=== PATIENT | female | born 1940 | race Caucasian/White ===

== ENCOUNTER 2018-07-08 00:43 | Inpatient (IN) | payer OTHER ==
[2018-07-08] VITALS (18 sets, daily range): BP systolic 111–132; BP diastolic 36–85; PULSE 50–69; RESP 14–26; Ht 152.4 cm; Wt 68.0 kg
[~2018-07-08] VITALS: Ht 152.4 cm; Wt 68.0 kg
[2018-07-08] MEDS ORDERED: SOD CHLORIDE 0.9% 500 ML IV ONE (03:00)
--- NOTE | 2018-07-08 03:58 | ERD ---
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 She was given aspirin and nitro on route. She denies chest pain now. When she did have the chest pain, question substernal chest pain with associated shortness of breath. Mild associated diaphoresis. Denies fevers chills nausea vomiting. Patient does have history of previous coronary artery disease with iliac stenting done 8 years ago. Denies any other current issues at this point ROS All systems reviewed and are negative except as per history of present illness. Allergies Allergies: Coded Allergies: No Known Allergy (Unverified , 07/08/18) Physical Exam Vitals Vital Signs Date Temp Pulse Resp B/P (MAP) Pulse Ox O2 O2 Flow FiO2 Time Delivery Rate 07/08/18 97.9 66 17 101/53 96 Room Air 03:30 (69) 07/08/18 98.9 77 19 102/67 100 Room Air 00:56 (79) 07/08/18 98.3 69 16 117/65 100 00:56 (82) Physical Exam Const: No acute distress Head: Atraumatic Eyes: Normal Conjunctiva ENT: Normal External Ears, Nose and Mouth. Neck: Full range of motion. No meningismus. Resp: Clear to auscultation bilaterally Cardio: Regular rate and rhythm, no murmurs Abd: Soft, non tender, non distended. Normal bowel sounds Skin: No petechiae or rashes Back: No midline or flank tenderness Ext: No cyanosis, or edema Neur: Awake and alert Psych: Normal Mood and Affect Result Diagram: 07/08/1810707/08/18 0108 Results 24 hrs Laboratory Tests Test 07/08/18 01:08 White Blood Count 6.8 10^3/ul Red Blood Count 4.26 10^6/ul Hemoglobin 12.4 g/dl Hematocrit 38.2 % Mean Corpuscular Volume 89.7 fl Mean Corpuscular Hemoglobin 29.1 pg Mean Corpuscular Hemoglobin Concent 32.5 g/dl Red Cell Distribution Width 13.2 % Platelet Count 241 10^3/UL Mean Platelet Volume 9.6 fl Immature Granulocytes % 0.400 % Neutrophils % 73.2 % Lymphocytes % 20.7 % Monocytes % 5.4 % Eosinophils % 0.0 % Basophils % 0.3 % Nucleated Red Blood Cells % 0.0 /100WBC Immature Granulocytes # 0.030 10^3/ul Neutrophils # 5.0 10^3/ul Lymphocytes # 1.4 10^3/ul Monocytes # 0.4 10^3/ul Eosinophils # 0.0 10^3/ul Basophils # 0.0 10^3/ul Nucleated Red Blood Cells # 0.0 10^3/ul Sodium Level 143 mmol/L Potassium Level 4.4 mmol/L Chloride Level 108 mmol/L Carbon Dioxide Level 25 mmol/L Anion Gap 10 Blood Urea Nitrogen 23 mg/dl Creatinine 0.71 mg/dl Est Glomerular Filtrat Rate mL/min mL/min Glucose Level 134 mg/dl Calcium Level 10.0 mg/dl Total Bilirubin 0.2 mg/dl Direct Bilirubin 0.00 mg/dl Indirect Bilirubin 0.2 mg/dl Aspartate Amino Transf (AST/SGOT) 51 IU/L Alanine Aminotransferase (ALT/SGPT) 11 IU/L Alkaline Phosphatase 133 IU/L Troponin I 3.890 ng/ml B-Type Natriuretic Peptide 392 PG/ML Total Protein 7.9 g/dl Albumin 4.0 g/dl Globulin 3.90 g/dl Albumin/Globulin Ratio 1.02 Lipase 67 U/L Current Medications Medications Dose Sig/Martín Start Time Status Last (Trade) Ordered Route PRN Stop Time Admin Dose Reason Admin Sodium 500 ml @ Q1H ONCE 07/08/18 07/08/18 Chloride 500 mls/hr IV 03:00 03:11 07/08/18 03:59 Procedures/MDM Emergency department course: Patient seen and monitored. Placed in by family evaluation. 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 I do stat cardiac workup. EMS EKG was reviewed. Diagnostic data: EKG: From the field EMS Rate/Rhythm: [Normal Sinus Rhythm] QRS, ST, T-waves: [No changes consistent w/ acute ischemia] Impression: [No evidence of ischemia or arrhythmia] EKG: Rate/Rhythm: [Normal Sinus Rhythm] QRS, ST, T-waves: [No changes consistent w/ acute ischemia] Impression: [No evidence of ischemia or arrhythmia] Chest X-ray 1V Interpreted by me: Soft Tissue: No acute abnormalities Bones: No acute abnormalities Mediastinum/Cardiac Silhouette/Lungs: [No acute abnormalities] Medical decision making: This is a 78-year female as well as to be a non-ST segment elevated [place] cardial infarction. Dr. Montenegro is Of the posterior service. Patient has remained clinically stable throughout her stay here in the emergency department. Patient will be admitted to telemetry setting Departure Diagnosis: Primary Impression: Chest pain Chest pain type: unspecified Qualified Codes: R07.9 - Chest pain, unspecified Additional Impression: Non-STEMI (non-ST elevated myocardial infarction) Condition: Serious GIOVANNY MARY Jul 08, 2018 03:58
[2018-07-08] MEDS ORDERED: ASPIRIN 81 MG TAB PO SCH (09:30)
[2018-07-08] MEDS ORDERED: ONDANSETRON 4 MG INJ IV PRN (09:30)
[2018-07-08] MEDS ORDERED: NACL 0.9% 3 ML SYG IV SCH (09:30)
[2018-07-08] MEDS ORDERED: morphine 2 MG INJ IV PRN (09:30)
[2018-07-08] MEDS ORDERED: ACETAMINOPHEN 325 MG TAB PO PRN (09:30)
[2018-07-08] MEDS ORDERED: ASPIRIN 81 MG TAB ONE (09:35)
[2018-07-08] MEDS: FAMOTIDINE 20 MG TAB PO SCH ×2 (09:45→20:21)
--- NOTE | 2018-07-08 09:55 | CONS ---
Assessment/Plan Assessment/Plan Hospital Course (Demo Recall) Non-ST elevation myocardial infarction History of CVA History of myocardial infarction -Patient with symptoms of chest discomfort not feeling well since yesterday afternoon. Troponins have been trending up. ECG with inferior Q waves. -I did discuss the findings and high concern for myocardial infarction to the patient and daughter at bedside. I discussed the benefits and the risks and re commended cardiac catheterization. The patient and family are undecided want to discuss it further. -In the interim, I did order full dose aspirin, statin therapy, ablation is not planning to proceed with coronary angiogram soon, would start anticoagulation. Would hold off on beta-henri at the current time given labile blood pressure -Check echocardiogram Consultation Date/Type/Reason Admit Date/Time Type of Consult Cardiology Reason for Consultation Chest pain and elevated troponin Date/Time of Note DATE: 07/08/18 TIME: 09:50 Hx of Present Illness This is a 78-year-old female with past medical history of myocardial infarction, CVA who presents with not feeling well yesterday. Patient is hard to give history and as per the family bedside, patient is very stoic and does not complain much. Yesterday, patient was found to be pale, diaphoretic with chest pain. Vitals were taken and heart rate was in the 40s and saturations were in the 80s because of this EMS was called. Patient felt better after aspirin and nitroglycerin. Currently patient complaining of 1-2 out of 10 of chest pain but is feeling much better. She denies any current shortness of breath, dizziness or lightheadedness. As per family, patient did have CVA and myocardial infarction number of years ago and this was treated medically. She is disabled and walks only with a walker since childhood. 12 point review of systems was performed with all pertinent positives and negatives mentioned above and all else is negative Past Medical History CVA Myocardial infarction Medications Current Medications IV Flush (NS 3 ml) 3 ml PER PROTOCOL IV ; Start 07/08/18 at 09:30 Ondansetron HCl (Zofran Inj) 4 mg Q6H PRN IV NAUSEA/VOMITING; Start 07/08/18 at 09:30 Aspirin (Aspirin) 81 mg DAILY PO Last administered on 07/08/18at 09:42; Admin Dose 81 MG; Start 07/08/18 at 09:30 Acetaminophen (Tylenol Tab) 650 mg Q6H PRN PO .PAIN 1-3 OR TEMP; Start 07/08/18 at 09:30 Morphine Sulfate (morphine) 2 mg Q4H PRN IV .PAIN 7-10; Start 07/08/18 at 09:30 Zolpidem Tartrate (Ambien) 5 mg QHS PRN PO .INSOMNIA; Start 07/08/18 at 21:00 Famotidine (Pepcid) 20 mg Q12 PO Last administered on 07/08/18at 09:45; Admin Dose 20 MG; Start 07/08/18 at 09:30 Allergies: Coded Allergies: No Known Allergy (Unverified , 07/08/18) Family History Significant Family History: no pertinent family hx Social History Alcohol Use: none Smoking Status: Unknown if ever smoked Exam/Review of Systems Vital Signs Vitals Vital Signs Date Temp Pulse Resp B/P (MAP) Pulse Ox O2 O2 Flow FiO2 Time Delivery Rate 07/08/18 67 21 117/55 97 Room Air 05:30 (75) 07/08/18 97.9 03:30 Exam Constitutional: alert, oriented (No apparent distress) Head: normocephalic Neck: supple Respiratory: other (Coarse breath sounds bilaterally, no wheezing) Cardiovascular: regular rate and rhythm (S1-S2 heard) Gastrointestinal: soft, non-tender, bowel sounds Extremities: edema ( ECG demonstrates sinus rhythm at 64 bpm, inferior Q waves, nonspecific ST abnormalities) Labs Result Diagram: 07/08/18 0108 07/08/18 0108 Results 24hrs Laboratory Tests Test 07/08/18 01:08 07/08/18 07:00 White Blood Count 6.8 Red Blood Count 4.26 Hemoglobin 12.4 Hematocrit 38.2 Mean Corpuscular Volume 89.7 Mean Corpuscular Hemoglobin 29.1 Mean Corpuscular Hemoglobin Concent 32.5 Red Cell Distribution Width 13.2 Platelet Count 241 Mean Platelet Volume 9.6 Immature Granulocytes % 0.400 Neutrophils % 73.2 Lymphocytes % 20.7 Monocytes % 5.4 Eosinophils % 0.0 Basophils % 0.3 Nucleated Red Blood Cells % 0.0 Immature Granulocytes # 0.030 Neutrophils # 5.0 Lymphocytes # 1.4 Monocytes # 0.4 Eosinophils # 0.0 Basophils # 0.0 Nucleated Red Blood Cells # 0.0 Sodium Level 143 Potassium Level 4.4 Chloride Level 108 Carbon Dioxide Level 25 Anion Gap 10 Blood Urea Nitrogen 23 H Creatinine 0.71 Est Glomerular Filtrat Rate mL/min Glucose Level 134 Calcium Level 10.0 Total Bilirubin 0.2 Direct Bilirubin 0.00 Indirect Bilirubin 0.2 Aspartate Amino Transf (AST/SGOT) 51 H Alanine Aminotransferase (ALT/SGPT) 11 L Alkaline Phosphatase 133 H Troponin I 3.890 *H 20.900 *H B-Type Natriuretic Peptide 392 Total Protein 7.9 Albumin 4.0 Globulin 3.90 H Albumin/Globulin Ratio 1.02 Lipase 67 Creatine Kinase 666 H Creatine Kinase Index 10.9 Creatinine Kinase MB (Mass) 72.90 H Medications Medications Current Medications IV Flush (NS 3 ml) 3 ml PER PROTOCOL IV ; Start 07/08/18 at 09:30 Ondansetron HCl (Zofran Inj) 4 mg Q6H PRN IV NAUSEA/VOMITING; Start 07/08/18 at 09:30 Aspirin (Aspirin) 81 mg DAILY PO Last administered on 07/08/18at 09:42; Admin Dose 81 MG; Start 07/08/18 at 09:30 Acetaminophen (Tylenol Tab) 650 mg Q6H PRN PO .PAIN 1-3 OR TEMP; Start 07/08/18 at 09:30 Morphine Sulfate (morphine) 2 mg Q4H PRN IV .PAIN 7-10; Start 07/08/18 at 09:30 Zolpidem Tartrate (Ambien) 5 mg QHS PRN PO .INSOMNIA; Start 07/08/18 at 21:00 Famotidine (Pepcid) 20 mg Q12 PO Last administered on 07/08/18at 09:45; Admin Dose 20 MG; Start 07/08/18 at 09:30 Ben Calderon DO Jul 08, 2018 09:55
[2018-07-08] MEDS ORDERED: IODIXANOL LOCM 100 ML BTL ONE (10:36)
[2018-07-08] MEDS ORDERED: LIDOCAINE 1% (MDV) 20 ML INJ ONE (10:36)
[2018-07-08] MEDS ORDERED: VERAPAMIL 5 MG INJ ONE (10:37)
[2018-07-08] MEDS ORDERED: HEPARIN 1000 UNITS/ML 10 ML INJ ONE (10:37)
[2018-07-08] MEDS ORDERED: NITROGLYCERIN (IC) 100 MCG/ML INJ ONE (10:37)
--- NOTE | 2018-07-08 10:53 | HP ---
DATE OF ADMISSION: 07/08/2018 CHIEF COMPLAINT: Chest pain. HISTORY OF PRESENT ILLNESS: A 78-year-old female with known history of coronary artery disease, old CVA and hypertension. She presented to emergency room with complaint of chest pain associated with d iaphoresis at home. The patient denies any shortness of breath. At baseline, she is disabled and appiah s used a walker since childhood. Initial evaluation revealed evidence of acute non-ST elevated myoca rdial infarction. Last troponin was 20.9. PAST MEDICAL HISTORY: 1. Coronary artery disease. 2. Old myocardial infarction. 3. Old cerebrovascular accident. 4. Hypertension. SOCIAL HISTORY: The patient lives at home. She denies tobacco or alcohol use. PHYSICAL EXAMINATION: GENERAL: Well-developed, well-nourished female who is in no apparent distress. VITAL SIGNS: Stable. She is afebrile. HEENT: Extraocular muscles are intact. Pupils are equal and reactive to light bilaterally. Sclerae are anicteric. Oropharynx is clear and moist. NECK: Supple, no JVD, no carotid bruits. LUNGS: Clear to auscultation bilaterally. CARDIAC: Regular rate and rhythm. No murmurs, rubs or gallops. ABDOMEN: Soft, nontender, nondistended, normoactive bowel sounds. EXTREMITIES: No clubbing, cyanosis, or edema. LABORATORY DATA: White blood cell count 6.8, hemoglobin 12.4, platelet count is 241,000. Basic meta bolic panel is within normal limits. Troponins are 3.9 and 20.9. Albumin is 4. ASSESSMENT: 1. A 78-year-old female with acute non-STEMI. 2. History of previous myocardial infarction. 3. History of old cerebrovascular accident. 4. Chronic debilitation. PLAN: 1. Admit to telemetry. 2. Resume home medications. 3. Serial troponins. 4. 2D echo. 5. Cardiology consultation was requested. Dictated By: MATHIEU MCDONALD/GOMEZ Conf#: [id number] DID#: [id number] CC: JONH FORTUNE DO;*EndCC*
--- NOTE | 2018-07-08 11:03 | RADRPT ---
Echocardiogram Report Patient Name: Krupa VICENTEtient ID: [id number] : 1940 (78y 2m)Study Date: 07/08/2018 9:50:11 AM Gender: FAccession #: [id number] Tech: YajairaOriana [facility] Location: [facility] Ref.Physician: MATHIEU PERALTA Height(Cm): BSA: Weight(Kg): Quality: AdequateAccount #: Procedures: Echocardiographic Report: Transthoracic echocardiogram with complete 2D, M-Mode, and doppler examination. Indications: Evaluate Left Ventricular function. Measurements: 2D/M Mode Doppler Measurement Value Normal Range Measurement Value Normal Range LVIDd 2D 3.4 [ 3.8 - 5.2 ] cm AV Peak Burke 1.5 [ 100.0 - 170.0 ] cm/sec LVIDs 2D 2.3 [ 2.2 - 3.5 ] cm AV Peak PG 9.0 [ 2.0 - 9.0 ] mmHg LVPWd 2D 1.2 [ 0.6 - 0.9 ] cm AI Peak PG 57.0 mmHg IVSd 2D 1.2 [ 0.6 - 0.9 ] cm AI Peak Burke 3.8 cm/sec AoR Diam 2D 2.4 [ 2.3 - 3.1 ] cm AI PHT 469.0 msec EDV 2D 46.4 [ 46.0 - 106.0 ] ml LVOT Peak Burke 0.7 [ 70.0 - 110.0 ] cm/sec ESV 2D 17.7 [ 14.0 - 42.0 ] ml LVOT Peak PG 2.0 [ 2.0 - 6.0 ] mmHg EF 2D 61.9 [ 54.0 - 74.0 ] percent MV E Peak Burke 0.5 [ 60.0 - 130.0 ] cm/sec LA Dimen 2D 3.3 [ 2.7 - 3.8 ] cm MV A Peak Burke 0.7 [ 100.0 - 120.0 ] cm/sec MV E/A 0.6 [ 0.8 - 1.5 ] ratio MV Decel Time 296 [ 104 - 258 ] msec Lat E` Burke 0.1 [ 10.0 - 15.0 ] cm/sec Lateral E/E` 7.1 [ 1.0 - 2.0 ] ratio MV E/A 0.6 [ 0.8 - 1.5 ] ratio TR Peak Burke 2.5 [ 100.0 - 280.0 ] cm/sec TR Peak PG 25.0 mmHg RVSP 28.0 [ 10.0 - 36.0 ] mmHg Findings: Left Ventricle: Overall, normal left ventricular systolic function. Not all segments visualized. Normal left ventricular cavity size. Mild concentric left ventricular hypertrophy. Ejection fraction is visually estimated at 55 %. Tissue Doppler/Mitral Doppler indices are consistent with impaired relaxation (Stage I diastolic dysfunction). Right Ventricle: Normal right ventricular size. Normal right ventricular systolic function. Left Atrium: The left atrium is normal in size. Right Atrium: The right atrium is normal in size. Mitral Valve: Mild mitral leaflet calcification. Mild mitral annular calcification. Mild to moderate mitral valve regurgitation. Aortic Valve: No hemodynamically significant aortic stenosis by doppler. Aortic cusps appear mildly calcified. Mild aortic valve regurgitation. Tricuspid Valve: Normal appearance of the tricuspid valve. Estimated peak PA systolic pressure 28 mmHg. There is mild to moderate tricuspid regurgitation. Pulmonic Valve: Normal pulmonic valve appearance. Pericardium: Normal pericardium with no significant pericardial effusion. Aorta: Normal aortic root. IVC: Normal size and normal respiratory collapse consistent with normal right atrial pressure. Conclusions: Overall, normal left ventricular systolic function. Not all segments visualized. Normal left ventricular cavity size. Mild concentric left ventricular hypertrophy. Ejection fraction is visually estimated at 55 %. Tissue Doppler/Mitral Doppler indices are consistent with impaired relaxation (Stage I diastolic dysfunction). Normal right ventricular size. Normal right ventricular systolic function. The left atrium is normal in size. The right atrium is normal in size. Mild to moderate mitral valve regurgitation. No hemodynamically significant aortic stenosis by doppler. Mild aortic valve regurgitation. There is mild to moderate tricuspid regurgitation. Normal pericardium with no significant pericardial effusion. Electronically Signed By: Ben Calderon 2018-07-08 11:02:44 PDT
[2018-07-08] MEDS ORDERED: MIDAZOLAM 1 MG/ML 2 ML INJ ONE (11:11)
[2018-07-08] MEDS ORDERED: TICAGRELOR 90 MG TABLET ONE (12:08)
[2018-07-08] MEDS ORDERED: SOD CHLORIDE 0.9% 1,000 ML IV SCH (12:20)
--- NOTE | 2018-07-08 12:20 | OPR ---
Date/Time of Note Date/Time of Note DATE: 07/08/18 TIME: 12:16 Operative Report Procedure Date: Jul 08, 2018 Preoperative Diagnosis Myocardial infarction Postoperative Diagnosis Obstructive coronary artery disease Operation/Procedure Performed Left heart catheterization Right and left coronary angiogram Interpretation and supervision of right and left coronary angiogram Left ventricular pressure measurements PCI of the proximal RCA with a placement of a 2.5 x 15 mm Xience alpine drug- eluting stent Left radial artery approach Conscious sedation Surgeon see signature line Utility Lineman Managing Supervisor staff Anesthesia Type: MAC Estimated Blood Loss: minimal Transfusion none Specimen None Grafts/Implants none Complications none Pt Condition Post Procedure: guarded Procedure Description Findings Hemodynamics LV pressure 127/3 with an EDP of 5 Aortic pressure 124/49 Coronary anatomy Left main is a large caliber vessel with ostial 30% stenosis LAD is a medium caliber vessel with mild luminal irregularities Circumflex is a medium caliber vessel with mild luminal irregularities RCA is a medium caliber vessel and dominant with an ostial 30% stenosis in proximal 99% stenosis Description of procedure The patient brought to the Managing Supervisor after informed consent. Patient prepped and draped as per protocol. Left radial artery access was obtained using ultrasound guidance. A 5/6 Czech sheath was placed in left radial artery. A 5 Czech JL 3.5 diagnostic catheter was used to do an angiogram of the left system. We next used a 5 Czech JR4 diagnostic catheter to do an angiogram of the RCA. Given the severe disease in the RCA, intervention was performed within the same setting. Angiomax was used for anticoagulation. Initially tried using a short Amplatz left catheter for the RCA but it would not sit well, we then used a 6 Czech JR4 guide to engage the RCA. The lesion was crossed with a run through wire and stented with a 2.5 x 15 mm drug-eluting stent. This was postdilated with the stent delivery system balloon and high pressure. There was an excellent endoscopic result with MANJU-3 flow with no evidence of dissection. We then used a JR4 to enter the left ventricle and pressure measurements were obtained as well as pullback. There was no immediate complications. Recommendations Dual antiplatelet therapy for minimum of 1 year to maintain stent patency. Aggressive risk factor management. Findings and plan discussed with patient's daughter. Ben Calderon DO Jul 08, 2018 12:20
[2018-07-08] MEDS ORDERED: BIVALIRUDIN 250MG /NS 50 ML 100 ML IVPB ONE (12:23)
[2018-07-08] MEDS: BIVALIRUDIN 250MG /NS 50 ML 50 ML IVPB SCH ×2 (12:30→14:27)
--- NOTE | 2018-07-08 14:27 | RADRPT ---
Vent Rate: 54 bpm RR Interval: 0 msec PA Interval: 208 msec QRS Duration: 90 msec QT Interval: 446 msec QTC Interval: 422 msec P-R-T [place]: 46 - 16 - 17 degrees Sinus bradycardia Otherwise normal ECG Electronically Signed By: Ben Calderon
[2018-07-08] MEDS: TICAGRELOR 90 MG TABLET PO SCH (20:23)
[2018-07-08] MEDS ORDERED: ZOLPIDEM 5 MG TAB PO PRN (21:00)
[2018-07-08] MEDS ORDERED: ATORVASTATIN 80 MG TAB PO SCH (21:00)
[2018-07-09] VITALS (15 sets, daily range): BP systolic 106–137; BP diastolic 45–61; PULSE 58–76; RESP 11–23
[2018-07-09] MEDS ORDERED: ASPI-1044 PO (08:07)
[2018-07-09] MEDS ORDERED: ATOR-2 PO (08:07)
[2018-07-09] MEDS ORDERED: TICA90TA PO (08:07)
--- NOTE | 2018-07-09 08:08 | PDOCDIS ---
Discharge Instructions CONDITION [id number] Patient Condition: [id number] Good HOME CARE INSTRUCTIONS: [id number] Diet Instructions: [id number] FOLLOW UP/APPOINTMENTS Follow-up Plan pcp [address] Calderon 1 week MATHIEU PERALTA MD Jul 09, 2018 08:08
[2018-07-09] MEDS: FAMOTIDINE 20 MG TAB PO SCH (08:52)
[2018-07-09] MEDS: TICAGRELOR 90 MG TABLET PO SCH (08:53)
[2018-07-09] MEDS ORDERED: ASPIRIN (EC) 81 MG TAB PO SCH (09:00)
--- NOTE | 2018-07-09 11:15 | DS ---
DATE OF ADMISSION: 07/08/2018 DATE OF DISCHARGE: 07/09/2018 DISCHARGE DIAGNOSES: 1. Acute non-ST elevated myocardial infarction. 2. Status post percutaneous coronary intervention and stent placement to right coronary artery. 3. History of old myocardial infarction. 4. History of old cerebrovascular accident. 5. Chronic disability. 6. Hypertension, well controlled. HOSPITAL COURSE: A 78-year-old very pleasant female with known history of coronary artery disease an d old CVA as well as hypertension, presented to the emergency room with complaint of chest pain assoc iated with diaphoresis. The patient was diagnosed with acute non-ST elevated myocardial infarction. She was seen in consultation by Dr. Calderon. The patient underwent coronary angiography followed by a PCI and stent placement to right coronary artery. There were no intraoperative or postoperative co mplications. The patient is in a stable condition for discharge. She has remained free of chest rajinder n during the hospitalization. MEDICATIONS ON DISCHARGE: Include: 1. Aspirin 81 mg p.o. daily. 2. Brilinta 90 mg p.o. b.i.d. 3. Lipitor 80 mg p.o. at bedtime. PLAN: 1. Follow up with PCP. 2. Follow up with Dr. Calderon in 1 week. Dictated By: MATHIEU PERALTA MD SK/NTS Conf#: [id number] DID#: [id number] CC: NICOLE CARRILLO MD; DON CALDERON DO;*EndCC*
--- NOTE | 2018-07-10 15:34 | RADRPT ---
Vent Rate: 62 bpm RR Interval: 0 msec DC Interval: 188 msec QRS Duration: 84 msec QT Interval: 454 msec QTC Interval: 460 msec P-R-T [place]: 37 - 24 - -14 degrees Normal sinus rhythm Nonspecific T wave abnormality Abnormal ECG Electronically Signed By: Marcell Coleman
== END 2018-07-09 13:21 | disposition home health service (06) | DRG 247 ==
LOC: E/R 00:43 → SDS 10:30 → CCL 10:30 → ICU 10:31 → CCL 10:31
PROVIDERS: ADMIT Internal Medicine Interventional Cardiology; ATTEND Internal Medicine Interventional Cardiology
PROC: B211YZZ Fluoroscopy of Multiple Coronary Arteries using Other Contrast (ICD-10-PCS; 2018-07-08)
PROC: 027034Z Dilation of Coronary Artery, One Artery with Drug-eluting Intraluminal Device, Percutaneous Approach (ICD-10-PCS; principal; 2018-07-08 10:30)
PROC: 4A023N7 Measurement of Cardiac Sampling and Pressure, Left Heart, Percutaneous Approach (ICD-10-PCS; 2018-07-08 10:30)
DX: I21.4 Non-ST elevation (NSTEMI) myocardial infarction (principal); I25.10 Atherosclerotic heart disease of native coronary artery without angina pectoris; I25.2 Old myocardial infarction; I10 Essential (primary) hypertension; Z86.73 Personal history of transient ischemic attack (TIA), and cerebral infarction without residual deficits; Z73.6 Limitation of activities due to disability
CPT/HCPCS: 36415; 71045; 80048; 80053; 82550; 82553; 83036; 83690; 83880; 84484; 85025; 87081; 92928; 93005; 93306; 93458; C1874; C1887; J0583; J1644; J2250; J7040; Q9967